=== PATIENT | female | born 2000 | race Caucasian/White ===

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

== ENCOUNTER 2022-10-05 12:01 | Emergency (ER) | payer MEDICAID, SELFPAY ==
[2022-10-05 12:06] VITALS: BP 131/101; PULSE 142; RESP 22; TEMP 37.1; O2SAT 94
[2022-10-05 12:11] VITALS: RESP 22
--- NOTE | 2022-10-05 12:15 | RT.EKG_ITS ---
APPROVED REPORT Exam: Resting ECG Reason for Exam: tachycardia Patient Location: E HR:123 bpm ECG Measurements Heart Rate 123 AXIS OR 137 P 30 QRSd 78 QRS 31 QT 294 T 0 QTc 421 Conclusion Sinus tachycardia...rate> 99
[2022-10-05] MEDS: Ibuprofen 600 MG TAB PO (13:39)
[2022-10-05] MEDS: Albuterol HFA 8 GM 60 PUFF INH IH (13:39)
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
[2022-10-05 14:17] LABS: COVID-19 PCR Negative (Negative); Influenza A PCR Positive (Negative); Influenza B PCR Negative (Negative); RSV PCR Negative (Negative)
[2022-10-05 14:19] LABS: Source Nasopharynx
== END 2022-10-05 14:24 | disposition home or self-care (01) ==
PROVIDERS: Emergency Provider Physician Assistant; PCP Nurse Practitioner Pediatrics
DX: B34.9 Viral infection, unspecified (principal); J10.1 Influenza due to other identified influenza virus with other respiratory manifestations; R00.0 Tachycardia, unspecified; Z20.822 Contact with and (suspected) exposure to COVID-19; Z77.22 Contact with and (suspected) exposure to environmental tobacco smoke (acute) (chronic)
CPT/HCPCS: 87637; 93005; 94640; 99283; 93010; 99284

== ENCOUNTER 2022-10-10 20:48 | Emergency (ER) | payer MEDICAID, SELFPAY ==
[2022-10-10 20:54] VITALS: BP 122/77; PULSE 124; RESP 16; TEMP 37.7; O2SAT 100
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
== END 2022-10-10 21:47 | disposition home or self-care (01) ==
PROVIDERS: Emergency Provider Physician Assistant; PCP Nurse Practitioner Pediatrics
DX: J10.1 Influenza due to other identified influenza virus with other respiratory manifestations (principal); Z20.822 Contact with and (suspected) exposure to COVID-19
CPT/HCPCS: 87880; 99282; 87081

== ENCOUNTER 2023-05-30 17:14 | Emergency (ER) | payer MEDICAID, SELFPAY ==
[2023-05-30 17:25] VITALS: BP 120/78; PULSE 125; RESP 18; TEMP 37.2; O2SAT 98
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
[2023-05-30] MEDS: Lidocaine 5% Patch 1 PATCH TP (18:12)
[2023-05-30] MEDS: Cyclobenzaprine 10 MG TAB PO (18:13)
[2023-05-30] MEDS: Ketorolac 15 MG/ML VIAL IM (18:13)
[2023-05-30] MEDS: Acetaminophen 325 MG TAB 650 MG PO (18:13)
[2023-05-30 19:12] VITALS: BP 120/81; PULSE 72; RESP 16; TEMP 36.7; O2SAT 99
[2023-05-30 19:50] VITALS: BP 123/77; PULSE 75; RESP 18; O2SAT 98
== END 2023-05-30 19:55 | disposition home or self-care (01) ==
PROVIDERS: Emergency Provider Student in an Organized Health Care Education/Training Program; PCP Nurse Practitioner Pediatrics
DX: M54.2 Cervicalgia (principal); M25.511 Pain in right shoulder
CPT/HCPCS: 96372; 99284; 99283; J1885